=== PATIENT | female | born 1960 | race Caucasian/White ===

== ENCOUNTER 2020-04-07 10:04 | Emergency (ER) | payer OTHER ==
--- NOTE | 2020-04-07 10:13 | PDOC ---
Attending Attestation - Resident Resident Name: Doc Charles - ED Attending Attestation I have performed the following: I have examined & evaluated the patient, The case was reviewed & discussed with the resident, I agree w/resident's findings & plan - HPI HPI: 04/07/20 10:11 59F w/PMH HTN and breast cancer s/p R mastectomy who presents with a minor laceration to her left forearm that she sustained when opening boxes. States tetanus is up to date. Denies weakness or paresthesias. tdap up to date no pain, paresthesias, weakness. no bleeding or bruising tendencies bleeding controlled 04/07/20 10:39 - Physicial Exam PE: 04/07/20 10:11 General: NAD, well appearing Vascular: 2+ radialis pulses symmetric and equal. Neuro: distal resident care director strength 5/5. sensation grossly intact in median/radial/ulnar distribution. MSK: soft compartments, Cap refill <2 sec. 2+ radialis pulses bilaterally and symmetric. FDP/FDS intact. no joint tenderness. FROM. Skin: color normal color, warm and well perfused. Laceration very superficial, linear measuring 1cm at the volar forearm. nonbleeding, nontender. - Medical Decision Making 04/07/20 10:12 Vital Signs Temp Pulse Resp BP Pulse Ox 98.3 F 89 16 139/85 96 04/07/20 10:05 04/07/20 10:05 04/07/20 10:05 04/07/20 10:05 04/07/20 10:05 vitals reviewed wnl laceration care provided. steri strips well approximated no e/o infection neurovascular intact wound care provided, washed copiously under water, cleaned and dressed wound care precautions, analgesia, keep clean and dry and will self heal without complications return precautions provided 04/07/20 10:39 Discharge - Discharge Information Problems reviewed: Yes Clinical Impression/Diagnosis: Laceration Condition: Stable Disposition: HOME - Admission No - Follow up/Referral - Patient Discharge Instructions Patient Printed Discharge Instructions: DI for Minor Laceration Additional Instructions: Usted fue visto en la [facility] de emergencias por kong pequea laceracin superficial en knight antebrazo trina. Se aplicaron tiras Steri para cerrar y proteger la herida. Te enviaron a casa con tiras esteri adicionales que puedes usar kong vez que se caen. Llame a knight mdico o regrese a la john de emergencias si presenta dolor, hinchazn, enrojecimiento, fiebre o cualquier otro problema. You were seen in the ER for a small superficial laceration to your left forearm. Steri strips were applied to close and protect the wound. You were sent home with additional steri strips that you can use once these fall off. Please call your doctor or return to the ER if you develop pain, swelling, redness, fever, or any other problem. Print Language: MALTESE - Post Discharge Activity
--- NOTE | 2020-04-07 10:17 | PDOC ---
History of Present Illness - General Chief Complaint: Laceration Stated Complaint: MINOR LACERATION TO LEFT INNER FOREARM Time Seen by Provider: 04/07/20 10:10 - History of Present Illness Initial Comments: 04/07/20 10:24 HPI 59F w/PMH HTN and breast cancer s/p R mastectomy who presents with a minor laceration to her left forearm that she sustained when opening boxes. Complains of minor pain at the site. States tetanus is up to date. Denies weakness or paresthesias. PMH/PSH: as above Meds: none Allergies: amoxicillin Tob: denies Etoh: denies Rec drugs: denies ROS GENERAL/CONSTITUTIONAL: No fever or chills. No weakness. HEAD, EYES, EARS, NOSE AND THROAT: No change in vision. No ear pain or discharge. No sore throat. CARDIOVASCULAR: No chest pain or shortness of breath RESPIRATORY: No cough, wheezing, or hemoptysis. GASTROINTESTINAL: No nausea, vomiting, diarrhea or constipation. GENITOURINARY: No dysuria, frequency, or change in urination. MUSCULOSKELETAL: No joint or muscle swelling or pain. No neck or back pain. SKIN: No rash. Left arm lac NEUROLOGIC: No headache, vertigo, loss of consciousness, or change in strength/sensation. ENDOCRINE: No increased thirst. No abnormal weight change HEMATOLOGIC/LYMPHATIC: No anemia, easy bleeding, or history of blood clots. ALLERGIC/IMMUNOLOGIC: No hives or skin allergy. PE GENERAL: Awake, alert, and fully oriented, in no acute distress HEAD: No signs of trauma, normocephalic, atraumatic EYES: PERRLA, EOMI, sclera anicteric, conjunctiva clear ENT: hearing grossly normal, nares patent, oropharynx clear without exudates. Moist mucosa NECK: Normal ROM, supple, no lymphadenopathy, JVD, or masses LUNGS: No distress, speaks full sentences, clear to auscultation bilaterally HEART: Regular rate and rhythm, normal S1 and S2, no murmurs, rubs or gallops, peripheral pulses normal and equal bilaterally. ABDOMEN: Soft, nontender, normoactive bowel sounds. No guarding, no rebound. No masses EXTREMITIES : Normal inspection, Normal range of motion, no edema. No clubbing or cyanosis. NEUROLOGICAL: Cranial nerves II through XII grossly intact. Normal speech, normal gait, no focal sensorimotor deficits SKIN: 1cm superficial lac to left forearm with another 1cm of linear abrasion without surrounding erythema. Skin already adhered to the wound. Warm, Dry, normal turgor, no rashes Assessment and Plan 59yo F with small L forearm laceration. Tetanus up to date -wound cleaned with water and steri strips applied -dc home with additional strips and return precautions Past History - Medical History Allergies/Adverse Reactions: Allergies Allergy/AdvReac Type Severity Reaction Status Date / Time amoxicillin Allergy Mild Itching Verified 04/07/20 10:06 Home Medications: Ambulatory Orders Unobtainable 04/07/20 Discharge - Discharge Information Problems reviewed: Yes Clinical Impression/Diagnosis: Laceration Condition: Stable Disposition: HOME - Follow up/Referral - Patient Discharge Instructions Additional Instructions: Usted fue visto en la john de emergencias por kong pequea laceracin superficial en knight antebrazo trina. Se aplicaron tiras Steri para cerrar y proteger la herida. Te enviaron a casa con tiras esteri adicionales que puedes usar kong vez que se caen. Llame a knight mdico o regrese a la john de emergencias si presenta dolor, hinchazn, enrojecimiento, fiebre o cualquier otro problema. You were seen in the ER for a small superficial laceration to your left forearm. Steri strips were applied to close and protect the wound. You were sent home with additional steri strips that you can use once these fall off. Please call your doctor or return to the ER if you develop pain, swelling, redness, fever, or any other problem. Print Language: SOUTH SUDANESE - Post Discharge Activity
[2020-04-07 10:23] VITALS: BP 139/85; PULSE 89; TEMP 98.3; BMI 20.2
== END 2020-04-07 10:38 | disposition home or self-care (01) ==
LOC: FER 10:04
DX: S51.812A Laceration without foreign body of left forearm, initial encounter (principal)
CPT/HCPCS: 99283-25